=== PATIENT | female | born 1940 | race Caucasian/White ===

== ENCOUNTER 2017-12-05 09:29 | Emergency (ER) | payer MEDICARE, OTHER ==
--- NOTE | 2017-12-05 09:34 | UC ---
Skin Complaint HPI - HPI Summary HPI Summary: 77 yo female presents with tick bite to right groin. Tick still attached. She tells me that she was gardening on tuesday (3 days ago) and thinks this is when she was bitten. She is very anxious because her had lyme disease and ended up with complications. She denies fever/chills/myalgias - History of Current Complaint Time Seen by Provider: 12/05/17 09:34 Stated Complaint: TICK BITE Hx Obtained From: Patient Onset/Duration: Sudden Onset Skin Exposure Onset/Duration: Days Ago Current Severity: None - Allergy/Home Medications Allergies/Adverse Reactions: Allergies Allergy/AdvReac Type Severity Reaction Status Date / Time aspirin [From Aggrenox] Allergy Nausea Verified 12/05/17 09:47 carisoprodol [From Soma] Allergy Hives Verified 12/05/17 09:46 dipyridamole [From Aggrenox] Allergy Nausea Verified 12/05/17 09:47 methylprednisolone Allergy unk Verified 12/05/17 09:48 Penicillins Allergy unk Verified 12/05/17 09:47 shellfish derived Allergy severe Verified 12/05/17 09:48 Teerdaf-Avo-Ffd Reductase Allergy unk Verified 12/05/17 09:48 Inhibitor environ Allergy unk Uncoded 12/05/17 09:49 Review of Systems Constitutional: Negative Skin: Other - Tick bite to right groin Respiratory: Negative Cardiovascular: Negative Neurovascular: Negative Musculoskeletal: Negative Neurological: Negative Psychological: Negative All Other Systems Reviewed And Are Negative: Yes PMH/Surg Hx/FS Hx/Imm Hx Previously Healthy: Yes Endocrine History: Dyslipidemia Cardiovascular History: Cardiac Disease, Hypertension - Surgical History Surgical History: Yes Surgery Procedure, Year, and Place: APPENDECTOMY 1951,. RT KNEE MENISCUS REPAIR 2012. TONSILECTOMY 1944. D&C - Family History Known Family History: Positive: Cardiac Disease, Hypertension - Social History Occupation: Retired Lives: With Family Alcohol Use: Daily Alcohol Amount: Wine with dinner Substance Use Type: None Smoking Status (MU): Never Smoked Tobacco - Immunization History Most Recent Influenza Vaccination: 2013 Most Recent Tetanus Shot: Within past 10 years Most Recent Pneumonia Vaccination: 2013 Physical Exam - Summary Physical Exam Summary: GENERAL: NAD. WDWN. No pain distress. SKIN: Right groin: Small tick attached. Mild engorgement. No streaking, bleeding , or drainage. NECK: Supple. Nontender. No lymphadenopathy. CHEST: No accessory muscle use. Breathing comfortably and in no distress. CV: RRR. Without m/r/g. NEURO: Alert. CN II-XII grossly intact. PSYCH: Age appropriate behavior. Triage Information Reviewed: Yes Vital Signs: Vital Signs: Temp Pulse Resp BP Pulse Ox 98 F 87 15 128/87 99 12/05/17 09:38 12/05/17 09:38 12/05/17 09:38 12/05/17 09:38 12/05/17 09:38 Course/Dx - Course Course Of Treatment: Tick removed with tick tweezers. Tick mildly engorged and present for ~3 days. She elected to have prophylactic doxycycline - given in clinic. - Diagnoses Provider Diagnoses: Tick bite to right groin Discharge - Sign-Out/Discharge Documenting (check all that apply): Discharge/Admit/Transfer - Discharge Plan Condition: Stable Disposition: HOME Patient Education Materials: Lyme Disease (ED), Tick Bite (ED) Referrals: Dg Harp MD [Primary Care Provider] - Clare Marcano MD [Medical Doctor] - If Needed Additional Instructions: If you develop a fever, shortness of breath, chest pain, new or worsening symptoms - please call your PCP or go to the ED. TICK BITE: You have been bitten by a tick. Once the tick is removed, these "bites" usually cause no problems. Tick fever, tick paralysis, [place] Spotted fever, and Lyme disease are uncommon -- but you should mention this tick bite to your doctor if you develop unusual symptoms in the next several weeks. If you develop any of the following, please see your physician promptly: (1) Fever, chills, or generalized malaise associated with a headache. (2) A red round area at the site of the bite (or elsewhere) (3) Joint pain, joint swelling or generalized weakness. (4) Redness, swelling, or drainage at the site of the bite. - Billing Disposition and Condition Condition: STABLE Disposition: HOME
[2017-12-05 09:41] VITALS: BP 128/87
[2017-12-05] MEDS ORDERED: DOXYcycline CAP(*) 100 MG PO ONE (09:58)
== END 2017-12-05 10:01 | disposition home or self-care (01) ==
LOC: UCEAST 09:29
DX: S30.861A Insect bite (nonvenomous) of abdominal wall, initial encounter (principal); W57.XXXA Bitten or stung by nonvenomous insect and other nonvenomous arthropods, initial encounter; Y93.H2 Activity, gardening and landscaping; Y92.096 Garden or yard of other non-institutional residence as the place of occurrence of the external cause; E78.5 Hyperlipidemia, unspecified; I11.9 Hypertensive heart disease without heart failure; Z88.6 Allergy status to analgesic agent; Z88.0 Allergy status to penicillin; Z88.8 Allergy status to other drugs, medicaments and biological substances
CPT/HCPCS: 99212; A9270-GY; G0463

== ENCOUNTER 2019-03-03 17:43 | Emergency (ER) | payer MEDICARE, OTHER ==
[2019-03-03 17:53] VITALS: BP 141/88
--- NOTE | 2019-03-03 18:05 | UC ---
Skin Complaint HPI - HPI Summary HPI Summary: Pt presents with c/o "cut" to right forearm and "cut to left facial cheek" that occurred after tripping on road/sidewalk and fell from standing and scraped right forearm and left facial cheek. Pt denies LOC, nausea, vomiting, AKHTAR, facial deformity or change in vision. - History of Current Complaint Chief Complaint: UCSkin Time Seen by Provider: 03/03/19 17:44 Stated Complaint: RT ARM SCRAPE Hx Obtained From: Patient ?: No Onset/Duration: Sudden Onset, Still Present Skin Exposure Onset/Duration: Hours Ago Onset Severity: Moderate Current Severity: Mild Pain Intensity: 4 Location: Discrete - right forearm, Face - left side of face Character: Redness - abrasion Aggravating Factor(s): Touch Alleviating Factor(s): Nothing Associated Signs & Symptoms: Positive: Tenderness Related History: Other: - abrasion - Allergy/Home Medications Allergies/Adverse Reactions: Allergies Allergy/AdvReac Type Severity Reaction Status Date / Time aspirin [From Aggrenox] Allergy Nausea Verified 03/03/19 17:53 carisoprodol [From Soma] Allergy Hives Verified 03/03/19 17:53 dipyridamole [From Aggrenox] Allergy Nausea Verified 03/03/19 17:53 methylprednisolone Allergy unk Verified 03/03/19 17:53 Penicillins Allergy unk Verified 03/03/19 17:53 shellfish derived Allergy severe Verified 03/03/19 17:53 Emhyrcc-Vmb-Sjk Reductase Allergy unk Verified 03/03/19 17:53 Inhibitor environ Allergy unk Uncoded 03/03/19 17:53 PMH/Surg Hx/FS Hx/Imm Hx Previously Healthy: Yes Endocrine History: Dyslipidemia Cardiovascular History: Cardiac Disease, Hypertension - Surgical History Surgical History: Yes Surgery Procedure, Year, and Place: APPENDECTOMY 195,. RT KNEE MENISCUS REPAIR 2012. TONSILECTOMY 1944. D&C - Family History Known Family History: Positive: Cardiac Disease, Hypertension - Social History Occupation: Retired Lives: With Family Alcohol Use: Daily Alcohol Amount: Wine with dinner Substance Use Type: None Smoking Status (MU): Never Smoked Tobacco Have You Smoked in the Last Year: No - Immunization History Most Recent Influenza Vaccination: 2013 Most Recent Tetanus Shot: Within past 10 years Most Recent Pneumonia Vaccination: 2014 Vaccination Up to Date: Yes Review of Systems All Other Systems Reviewed And Are Negative: Yes Constitutional: Positive: Negative Skin: Positive: Other - abrasion, Eyes: Positive: Negative ENT: Positive: Negative Respiratory: Positive: Negative Cardiovascular: Positive: Negative Gastrointestinal: Positive: Negative Genitourinary: Positive: Negative Motor: Positive: Negative Neurovascular: Positive: Negative Musculoskeletal: Positive: Myalgia Neurological: Positive: Negative Psychological: Positive: Negative Is Patient Immunocompromised?: No Physical Exam Triage Information Reviewed: Yes Appearance: Well-Appearing Vital Signs: Initial Vital Signs Temp 98.5 F 03/03/19 17:46 Pulse 74 03/03/19 17:46 Resp 18 03/03/19 17:46 BP 141/88 03/03/19 17:46 Pulse Ox 98 03/03/19 17:46 Vital Signs Reviewed: Yes Eye Exam: Normal Eyes: Positive: Other: - no step off around left eye, ENT Exam: Normal Dental Exam: Normal Neck exam: Normal Respiratory Exam: Normal Respiratory: Positive: No respiratory distress Musculoskeletal Exam: Normal Musculoskeletal: Positive: Strength Intact, ROM Intact Neurological Exam: Normal Psychological Exam: Normal Skin Exam: Other - right forearm, superficial abrasion, ~ 4 cm X 2 cm. left facial cheek, superficial laceration ~ 1cm length, bleeding controlled. small bruise under left eye, no c/o pain with PE/palpation no step off, no swelling Course/Dx - Differential Diagnoses - Skin Complaint Differential Diagnoses: Cellulitis - Diagnoses Provider Diagnosis: Abrasion of right arm, Facial contusion, Laceration of face without complication Discharge - Sign-Out/Discharge Documenting (check all that apply): Patient Departure All imaging exams completed and their final reports reviewed: No Studies - Discharge Plan Condition: Stable Disposition: HOME Patient Education Materials: Abrasion (ED) Referrals: Dg Harp MD [Primary Care Provider] - If Needed Additional Instructions: Please follow up with your PCP as needed. Please monitor fo rany signs or symptoms of infection that include but are not limited to, increased redness, tenderness, drainage, swelling, and/or fever. Please change your dressing twice daily or more frequently if bandage becomes soiled or wet. - Billing Disposition and Condition Condition: STABLE Disposition: Home
== END 2019-03-03 18:15 | disposition home or self-care (01) ==
LOC: UCEAST 17:43
DX: S50.811A Abrasion of right forearm, initial encounter (principal); S01.412A Laceration without foreign body of left cheek and temporomandibular area, initial encounter; S00.83XA Contusion of other part of head, initial encounter; W18.39XA Other fall on same level, initial encounter; Y92.480 Sidewalk as the place of occurrence of the external cause; E78.5 Hyperlipidemia, unspecified; I10 Essential (primary) hypertension; Z88.0 Allergy status to penicillin
CPT/HCPCS: 99212; G0463